=== PATIENT | female | born 1960 | race African-American/Black ===

== ENCOUNTER 2019-02-12 13:18 | Inpatient (IN) | payer OTHER ==
[~2019-02-12] VITALS: Ht 167.6 cm; Wt 53.8 kg
--- NOTE | ~2019-02-12 | H ---
[facility] [place] [address] [place] [address] HISTORY AND PHYSICAL Name: CASEY BLAND Julia Room #: 202-P ADM IN M.R.#: [id number] Admission: 02/12/19 Attend Phys: Scottie Larkin MD Discharge: Date of : 56 Report #: [id number] THIS REPORT FOR: //name// CC: Rae Larkin DATE OF SERVICE: 02/15/2019 CONSULTING PHYSICIAN: Dr. Hartmann. REASON FOR CONSULTATION: Primary hyperparathyroidism. RECOMMENDATIONS: 1. Thank you for the consultation. I will follow along. 2. I will follow up on ultrasound report. 3. She may need further imaging depending on what the ultrasound shows. 4. Given her constellation of symptoms and laboratory findings and underlying comorbidities, the patient would likely benefit from a parathyroidectomy. Extensive parathyroidectomy depends on imaging. 5. No surgical intervention during this hospitalization. The patient can follow up with me in 1-2 weeks following discharge. HISTORY OF PRESENT ILLNESS: The patient is a pleasant 58-year-old female with 2 month history of nausea, vomiting and abdominal pain. These became too extreme for her, so she presented to the ER. The patient does have somewhat of an underlying cognitive dysfunction. Therefore, medical history is obtained from her, her niece, and the referring physicians and her medical record. At the time of my visit, the patient was status post heart catheterization, but she was alert and answering questions. She was not in any extreme pain. She was not nauseated at that time. The patient denies fevers, chills, night sweats, chest pain or shortness of air. She denies melena, hematochezia, hematemesis. PAST MEDICAL HISTORY: 1. Hypertension. 2. Diabetes mellitus. 3. Hyperlipidemia. 4. Endometriosis. 5. Microadenoma tumors. PAST SURGICAL HISTORY: 1. Heart catheterization. 2. The patient denies any neck procedures. [facility] [address] [place] [address] HISTORY AND PHYSICAL Name: CASEY BLAND Room #: 202-P [facility] IN [facility].#: [id number] Admission: 02/12/19 Attend Phys: Scottie Larkin MD Discharge: Date of : 56 Report #: [id number] SOCIAL HISTORY: Denies use of alcohol, tobacco or recreational drugs. FAMILY HISTORY: Denies coagulopathy. Denies malignancies. REVIEW OF SYSTEMS: CONSTITUTIONAL: No fever. No chills. HEENT: Denies blurring of vision, double vision, headaches, hearing loss, sinus drainage or sore throat. Denies blurring of vision, double vision, headaches, hearing loss, sinus drainage or sore throat. CARDIOVASCULAR: See above and below. RESPIRATORY: Denies cough, wheezing, hemoptysis, or shortness of air. GASTROINTESTINAL: See above and below. GENITOURINARY: Denies dysuria or hematuria or kidney stones. No urinary frequency, urgency or incontinence. Denies dysuria or hematuria or kidney stones. No urinary frequency, urgency or incontinence. MUSCULOSKELETAL: No joint pain. No muscle pain. NEUROLOGICAL: Denies tremor, stroke or seizure. Denies tremor, stroke or seizure. HEMATOLOGIC / LYMPHATICS: Denies easy bruising, easy bleeding or enlarged lymph nodes. SKIN: No rash or ulceration. ENDOCRINE: No heat or cold intolerance PSYCHIATRIC: Denies depression, anxiety, or schizophrenia. PHYSICAL EXAMINATION: VITAL SIGNS: Temperature is 37, respiratory rate 18 on nasal cannula, heart rate is 88 at time of my H and P. Blood pressure is stable. GENERAL: No apparent distress, alert and oriented x3. HEENT: PERRLA, EOMI, MMM, NCAT NECK: Supple. No LAD CARDIOVASCULAR: Regular rhythm and rate. Hemodynamically stable. Normal capillary refill. Regular rhythm and rate. Hemodynamically stable. Normal capillary refill. PULMONARY: Nonlabored. Clear to auscultation bilaterally ABDOMEN: Soft, nontender to palpation, no guarding, no rigidity, no rebound tenderness, no hernias. EXTREMITIES: Calves soft, nontender, no edema. SKIN: No rashes or bruises. No visible incisions. PSYCHIATRIC: Normal mood and affect Normal mood and affect NEUROLOGICAL: Grossly intact. CN II-XII grossly intact. MUSCULOSKELETAL: 5/5 strength in upper extremities and lower extremities [address] [address] HISTORY AND PHYSICAL Name: CASEY BLAND Room #: 202-P ADM IN M.R.#: [id number] Admission: 02/12/19 Attend Phys: Scotite Larkin MD Discharge: Date of : 56 Report #: [id number] bilaterally. Right heart cath site clean, dry, no edema, no palpable hematoma. LYMPHATICS: No cervical, inguinal, or supraclavicular lymphadenopathy. By: 1241 1844 Cortez Hartmann MD /nt
--- NOTE | ~2019-02-12 | HC ---
[facility] [place] [place] [address] CONSULTATION Name: MARTINYanetCASEY R Room #: 202-P ADM IN M.R.#: [id number] Admission: 02/12/19 Attend Phys: Scottie Larkin MD Discharge: Date of : 56 Report #: [id number] THIS REPORT FOR: //name// CC: Rae Larkin DATE OF SERVICE: 02/12/2019 HISTORY OF PRESENT ILLNESS: The patient is a 58-year-old -[place] female. She came in with some progressive 2 weeks of nausea, vomiting and history of colitis. She had been scheduled as an outpatient for colonoscopy with Dr. Huang, but that did not occur. Subsequently, she developed some intermittent chest pressure with a troponin of 0.13 and 0.15 with T-wave abnormalities anterolaterally. So, this may be due to potassium. She was also found to be hypokalemic. Her medications have been lisinopril, indapamide, atorvastatin, Xopenex, losartan 50, cabergoline, had been taking Valium. Not clear if these EKG changes or troponin are significant, but concerning. PAST MEDICAL HISTORY: Positive for hypertension, diabetes, hypercholesterolemia and this recurrent colitis, endometriosis. ALLERGIES: PENICILLIN. SOCIAL HISTORY: She is accompanied by a brother. She is not . She has no children. No alcohol or tobacco. FAMILY HISTORY: There is a brother who had stents. LABORATORY DATA: Potassium 3.2, creatinine 1.4. Troponin is 0.15. SGPT 21. H and H are 12 and 37, white count 7.0. UA looks unremarkable. CAT scan shows stool throughout the colon, nothing for bowel obstruction, no evidence of appendicitis. PHYSICAL EXAMINATION: GENERAL: She is quiet, but in no distress. VITAL SIGNS: Blood pressure 136/80, pulse 60. HEENT: Eyes reveal xanthelasmas. Pharynx is clear. NECK: Shows preserved upstrokes without JVD or bruits. LUNGS: Clear. CARDIOVASCULAR: Regular rate and rhythm, S1, S2, without significant murmur or gallop. ABDOMEN: Slightly distended. No rebound or bowel sounds noted. Diffusely tender. EXTREMITIES: Reveal trace nonpitting edema. NEUROLOGIC: Nonfocal. [facility] [address] [place] [address] CONSULTATION Name: CASEY BLAND Room #: 202-P [facility] IN M.R.#: [id number] Admission: 02/12/19 Attend Phys: Scottie Larkin MD Discharge: Date of : 56 Report #: [id number] SKIN: Warm and dry without xanthoma or ulcer. MUSCULOSKELETAL: No gross joint deformity. ASSESSMENT: 1. Equivocal troponin elevation with abnormal EKG, rule out significant underlying coronary ischemia. 2. Colitis. 3. Hypertension. 4. Hypercholesterolemia. 5. Diabetes. RECOMMENDATIONS AND PLAN: We will repeat a troponin, EKG and echo in the morning. Replace potassium for the hypokalemia. CT scan is unremarkable. I would consider abdominal ultrasound in a.m. and possibly gallbladder. We will discuss with hospitalist and GI was supposed to evaluate. I will defer to them on GI consult. EKG changes could be due to hypokalemia but T-wave inversions are concerning, so we will either need nuclear stress testing or possible catheterization, although she is voicing no current complaints of chest pain. We will continue to follow with you. Thank you for asking me to assist in the care of this patient. By: [id number] /nt
[~2019-02-12 13:18] MED LIST: BACTRIM DS TAB1 EACH PO; CABERGOLINE 0.0.5 M1 PO; FLEXERIL PO; IBUPROFEN 800800 MG PO; TIGAN300 MG PO; VALIUM5 MG PO; ZESTRIL40 MG PO
[2019-02-12 13:28] VITALS: BP 149/96
[2019-02-12 13:54] LABS: ABSOLUTE NEUTROPHILS 3.8 thou/uL (1.4-8.2); EOSINOPHILS 0.1 % (0.0-3.0); HEMATOCRIT 37.4 % (37.0-47.0); HEMOGLOBIN 12.6 gm/dL (12.0-15.0); LYMPHOCYTES 37.7 % (24.0-44.0); MCHC 33.7 g/dL (28.0-37.0); MONOCYTES 7.5 % (1.0-8.0); PLATELET COUNT 182 thou/uL (150-400); POLYS 53.7 % (36.0-66.0); RBC 3.94 mil/uL (4.20-5.00); RDW 13.6 % (10.5-14.5)
[2019-02-12 14:00] LABS: CALCIUM 10.9 mg/dL (8.5-10.1); CREATININE 1.4 mg/dL (0.6-1.0); POTASSIUM 3.2 mmol/L (3.5-5.1)
[2019-02-12 14:03] LABS: URINE BILIRUBIN NEGATIVE (Negative); URINE BLOOD TRACE (Negative); URINE CLARITY CLEAR; URINE COLOR YELLOW; URINE GLUCOSE-RANDOM* NEGATIVE (Negative); URINE KETONES NEGATIVE (Negative); URINE NITRITE-REFLEX NEGATIVE (Negative); URINE PROTEIN (DIPSTICK) NEGATIVE (Negative); URINE SPECIFIC GRAVITY 1.015 (1.005-1.035); URINE UROBILINOGEN 0.2 E.U./dl (0.2-1.0)
[2019-02-12 14:04] LABS: URINE LEUKOCYTES-REFLEX 1+ (Negative)
[2019-02-12 14:07] LABS: ALBUMIN 4.4 g/dL (3.4-5.0); TOTAL BILIRUBIN 1.1 mg/dL (<0.1-1.0); TOTAL PROTEIN 7.8 g/dL (6.4-8.2); TROPONIN-I 0.13 ng/mL (<0.06)
[2019-02-12 14:12] LABS: SQUAMOUS 0-3 Few /LPF (0-3)
[2019-02-12 14:13] LABS: BACTERIA-REFLEX 1-9 Few /HPF (None Seen); CASTS None Seen /LPF (None Seen); CRYSTALS None Seen /LPF (None Seen); URINE RBC None Seen /HPF (0-2); URINE WBC-REFLEX 6-15 Few /HPF (0-5)
--- NOTE | 2019-02-12 15:50 | EKG ---
[facility] [place] [address] ELECTROCARDIOGRAM REPORT Name: MARTINYanetCASEY Room #: [facility]#: [id number] Admission: 02/12/19 Attend Phys: Discharge: Date of : 56 Report #: [id number] THIS REPORT FOR: //name// [facility] ED Test Date: 2019-02-12 Test Time: 13:59:52 Pat Name: CASEY BLAND Department: Room: Gender: F Meatman: JARROD : 1960 Requested By: Rachid Hamilton Order Number: [id number] MD: Forest Aragon Measurements Intervals [place] Rate: 76 P: 18 WV: 160 QRS: -18 QRSD: 112 T: 103 QT: 454 QTc: 511 Interpretive Statements Sinus rhythm RSR' in V1 or V2, right VCD LVH with secondary repolarization abnormality No previous ECG available for comparison Electronically Signed On 02-12-2019 15:49:54 GENERAL EXPEDITOR by Forest Aragon [email or web address] <ELECTRONICALLY SIGNED> By: Forest Aragon MD, [facility] 02/12/19 1549 [id number] [id number] Forest Aragon MD, FACC /EPI
[2019-02-12 17:33] VITALS: BP 166/87
[2019-02-12 18:08] VITALS: BP 160/88
[2019-02-12 19:06] VITALS: BP 137/87
[2019-02-12] MEDS ORDERED: LIPITOR40 MG PO (19:40)
[2019-02-12] MEDS ORDERED: INDAPAMIDE2.5 MG PO (19:42)
[2019-02-12] MEDS ORDERED: ASA81BEC PO (19:42)
[2019-02-12] MEDS ORDERED: COZAAR 25 MG TA25 M2 PO (19:43)
[2019-02-12] MEDS ORDERED: CABERGOLINE 0.0.5 M1 PO (19:44)
[2019-02-12] MEDS ORDERED: JANUVIA100 MG PO (19:44)
[2019-02-13] VITALS: BP 94/62
[2019-02-13 03:12] VITALS: BP 108/73
[2019-02-13 07:30] VITALS: BP 139/78
[2019-02-13 09:51] LABS: CREATININE 1.4 mg/dL (0.6-1.0); POTASSIUM 3.8 mmol/L (3.5-5.1)
[2019-02-13 09:57] LABS: CHOLESTEROL 184 mg/dL (<200); HDL CHOLESTEROL 68 mg/dL (>40); LDL CHOLESTEROL 109 mg/dL (<100); TC:HDL 2.7 Ratio (Not establshd); TRIGLYCERIDE 37 mg/dL (<150); VLDL 7 mg/dL (<40)
[2019-02-13 11:25] VITALS: BP 109/62
[2019-02-13 12:55] LABS: CALCIUM 9.8 mg/dL (8.5-10.1); CREATININE 1.3 mg/dL (0.6-1.0); PHOSPHORUS 2.5 mg/dL (2.5-4.9)
[2019-02-13 15:15] VITALS: BP 120/75
[2019-02-13 19:44] VITALS: BP 132/60
[2019-02-13 21:05] LABS: LUTEINIZING HORMONE (LH) 36.7 mIU/mL (()); PROLACTIN 0.4 ng/mL (4.8-23.3)
[2019-02-14 00:55] VITALS: BP 104/56
[2019-02-14 04:40] VITALS: BP 129/68
[2019-02-14 07:45] VITALS: BP 148/94
--- NOTE | 2019-02-14 08:40 | 2DMMODE ---
[address] [employer] [place] [address] 2 D/M-MODE ECHOCARDIOGRAM Name: CASEY BLAND Room #: 202-P ADM IN M.R.#: [id number] Admission: 02/12/19 Attend Phys: Scottie Larkin MD Discharge: Date of : 56 Report #: [id number] THIS REPORT FOR: //name// APPROVED REPORT Study performed: 02/13/2019 12:12:48 EXAM: Comprehensive 2D, Doppler, and color-flow Echocardiogram Patient Location: Bedside Room #: 202 Status: on-call BSA: 1.60 HR: 62 bpm BP: 108/73 mmHg Rhythm: NSR Other Information Study Quality: Adequate Risk Factors: Cardiac Risk Factors: HTN, Hyperlipidemia, DM Indications Elevated Troponin Chest Pain Hypertension/HDD 2D Dimensions IVSd: 21.16 (7-11mm) LVOT Diam: 20.00 (18-24mm) LVDd: 30.24 mm PWd: 18.43 (7-11mm) Ascending Ao: 31.19 (22-36mm) LVDs: 16.99 (25-40mm) Aortic Root: 29.52 mm LV Single Plane 4CH: 61.57 % LV Single Plane 2CH: 73.49 % Biplane EF: 68.7 % Volumes Left Atrial Volume (Systole) Single Plane 4CH: 54.43 mL Single Plane 2CH: 63.56 mL LA ESV Index: 43.00 mL/m2 Aortic Valve AoV Peak Raj.: 1.82 m/s AO Peak Gr.: 13.26 mmHg [facility] [address] [address] 2 D/M-MODE ECHOCARDIOGRAM Name: CASEY BLAND Room #: 202-P [facility] IN [facility]#: [id number] Admission: 02/12/19 Attend Phys: Scottie Larkin MD Discharge: Date of : 56 Report #: [id number] Mitral Valve E/A Ratio: 0.7 MV Decel. Time: 370.84 ms MV E Max Raj.: 0.64 m/s MV A Raj.: 0.89 m/s MV PHT: 107.54 ms IVRT: 79.58 ms TDI E/Lateral E': 12.80 E/Medial E': 21.33 Medial E' Raj.: 0.03 m/s Lateral E' Raj.: 0.05 m/s Pulmonary Vein P Vein S: 0.59 m/s P Vein A: 0.22 m/s P Vein D: 0.30 m/s P Vein A Dur.: 121.1 msec P Vein S/D Ratio: 1.97 Left Ventricle The left ventricle is normal size. There is normal LV segmental wall motion. Severe concentric left ventricular hypertrophy. Mid-left ventricular gradient measures 21 mmHg. The left ventricular systolic function is normal. The left ventricular ejection fraction is within the normal range. LVEF is 65-70%. Mild diastolic dysfunction is present (impaired relaxation pattern). Right Ventricle The right ventricle is normal size. The right ventricular systolic function is normal. Atria Left atrium is moderately dilated. Right atrium is borderline dilated. Aortic Valve The aortic valve is normal in structure. No aortic regurgitation is present. There is no aortic valvular stenosis. Mitral Valve The mitral valve is normal in structure. Mild mitral regurgitation. No evidence of mitral valve stenosis. Tricuspid Valve The tricuspid valve is normal in structure. There is no tricuspid valve regurgitation noted. [facility] [address] [place] [address] 2 D/M-MODE ECHOCARDIOGRAM Name: CASEY BLAND Room #: 202-P ADM IN .R.#: [id number] Admission: 02/12/19 Attend Phys: Scottie Larkin MD Discharge: Date of : 56 Report #: [id number] Pulmonic Valve The pulmonary valve is normal in structure. Trace pulmonic regurgitation. Great Vessels The aortic root is normal in size. The ascending aorta is normal in size. IVC is not well visualized. Pericardium There is no pericardial effusion. <Conclusion> The left ventricle is normal size. Severe concentric left ventricular hypertrophy. Mid-left ventricular gradient measures 21 mmHg. LVEF is 65-70%. Mild diastolic dysfunction is present (impaired relaxation pattern). The right ventricle is normal size. Left atrium is moderately dilated. Right atrium is borderline dilated. The aortic valve is normal in structure. Mild mitral regurgitation. There is no tricuspid valve regurgitation noted. The aortic root is normal in size. There is no pericardial effusion. <ELECTRONICALLY SIGNED> By: Benny Frank MD, FACC 02/14/19839 9 9 Benny Frank MD, FACC /INF
[2019-02-14 10:06] LABS: ABSOLUTE NEUTROPHILS 2.8 thou/uL (1.4-8.2); BASOPHILS 0.7 % (0.0-2.0); EOSINOPHILS 0.4 % (0.0-3.0); LYMPHOCYTES 28.4 % (24.0-44.0); MCH 32.8 pg (26.0-34.0); MCHC 33.8 g/dL (28.0-37.0); MONOCYTES 7.2 % (1.0-8.0); PLATELET COUNT 137 thou/uL (150-400); POLYS 63.3 % (36.0-66.0); RBC 3.09 mil/uL (4.20-5.00); WBC 4.4 thou/uL (4.0-11.0)
[2019-02-14 10:12] LABS: HEMOGLOBIN 10.1 gm/dL (12.0-15.0)
[2019-02-14 10:20] LABS: INR 1.1; PROTIME 11.3 Seconds (9.3-11.4)
--- NOTE | 2019-02-14 10:43 | HC ---
[facility] [place] [address] [place] [address] CONSULTATION Name: MARTINYanetCASEY Room #: 202-P ADM IN M.R.#: [id number] Admission: 02/12/19 Attend Phys: Scottie Larkin MD Discharge: Date of : 56 Report #: [id number] THIS REPORT FOR: //name// CC: Rae Larkin MD DATE OF SERVICE: 02/13/2019 HISTORY OF PRESENT ILLNESS: The patient is a 58-year-old female who was admitted through the Emergency Room yesterday for persistent nausea and vomiting. This has been ongoing for several months reportedly on a daily basis. The patient denies any fevers or chills, at one point was stating some chest discomfort, also some left-sided upper abdominal pain. She does have a history of diabetes. No one else is ill at home. She denies any fevers or chills. Unclear if she has had any new medications recently. There might have been medication changes for her diabetes recently. She does report mild heartburn at times, took Tums on a p.r.n. basis in the past. Denies any dysphagia, no previous history of upper endoscopy. The patient underwent a CT scan of the abdomen and pelvis on admission, which shows moderate to greater amount of stool throughout the colon. No discrete findings for colitis; however, they bring up a mild edema tracking along the descending colon. This appears to be more related to previous inflammatory process than a current process. This could reflect a resolving colitis or gastroenteritis. Small lesion in the liver likely hemangioma was noted. The patient's white count is normal. She is afebrile at this time. She has been started on antibiotics in case of colitis. She denies any diarrhea. She denies any blood in her stools including bright red blood or melanotic stools. She believes her last colonoscopy was approximately 8 years ago and was negative. She was actually scheduled for a colonoscopy in the near future by a different physician. She does have a family history of colon cancer in her mother. At home, she was taking MiraLax almost on a daily basis, also was using magnesium citrate and stool softeners at times with mixed results. She states her last bowel movement was Friday. Since being in the hospital, receiving IV fluids and antiemetics. She denies any further nausea or vomiting. In fact, she had lunch today and ate half of her meal. She was noted to have a mildly elevated troponin. Dr. Frank has evaluated the patient, they discussed options regarding invasive versus noninvasive testing and per Dr. Ambriz's note considering possibly proceeding with mesenteric angiography as well as a heart catheterization on Friday. PAST MEDICAL HISTORY: Diabetes, hypertension, hyperlipidemia, previous history of endometriosis. [address] [address] CONSULTATION Name: CASEY BLAND Julia Room #: 202-P ADM IN M.R.#: [id number] Admission: 02/12/19 Attend Phys: Scottie Larkin MD Discharge: Date of : 56 Report #: [id number] MEDICATIONS AT HOME: Ibuprofen p.r.n., Zestril, cabergoline, Valium p.r.n., Tigan p.r.n. ALLERGIES: PENICILLIN. REVIEW OF SYSTEMS: As per HPI. SOCIAL HISTORY: She denies any tobacco or alcohol use. FAMILY HISTORY: Positive for colon cancer in her mother diagnosed in her 60s. PHYSICAL EXAMINATION: VITAL SIGNS: Temperature is 98.1, pulse 70, blood pressure 109/62, respiratory rate is 18. GENERAL: She is alert and oriented x 3, in no acute distress. HEENT: Sclerae nonicteric. Oropharynx clear. NECK: Supple, without lymphadenopathy. CARDIOVASCULAR: Regular rate and rhythm. CHEST: Clear to auscultation bilaterally. ABDOMEN: Soft, nontender, nondistended, normoactive bowel sounds. EXTREMITIES: No cyanosis, clubbing or edema. LABORATORY DATA: Sodium 139, potassium 3.8, chloride 104, bicarb 30, BUN 13, creatinine 1.3, glucose 143, AST 19, lipase 201, total bilirubin 1.1, calcium 9.8, phosphorus 2.5, magnesium 1.9, alkaline phosphatase 59, ALT 21, total protein 7.8, albumin 4.4. Troponin 0.08, most recent 0.13 on admission. Cholesterol 184, triglycerides 37, HDL 68, LDL 109. T4 is 1.0. WBC 7.0, hemoglobin 12.6, platelet count is 182. TSH 0.911. UA with trace blood, 1 leukocyte, wbc's 6-15, bacteria 1-9. The patient underwent an ultrasound of the abdomen today, which was essentially unremarkable. Chest x-ray negative. On labs, blood culture was just reported as positive this morning for gram-positive cocci. ASSESSMENT AND PLAN: 1. Persistent nausea and vomiting, etiology is unclear. Doubt gastroenteritis as the patient has had this reportedly for several weeks or even months. She does have a history of diabetes, suggesting the possibility of gastroparesis as of right now with IV fluids and Zofran. She is having no further nausea and vomiting. We will continue this current regimen and observing. I would recommend proceeding with an upper endoscopy in the near future when she is stable from a cardiac standpoint. 2. CT showing edema in the descending colon bringing up the possibility of colitis. The patient denies any diarrhea or blood in her stools. Agree with antibiotics at this time, especially with her urinary tract infection, could consider performing EGD and colonoscopy at the same time in the near future. [facility] [address] [place] [address] CONSULTATION Name: CASEY BLAND Room #: 202-P ADM IN .R.#: [id number] Admission: 02/12/19 Attend Phys: Scottie Larkin MD Discharge: Date of : 56 Report #: [id number] Obviously, she would need to prep and with her recent nausea and vomiting, this may be difficult; however, she has improved. She does complain of constipation. Last bowel movement was on Friday. We will start daily MiraLax at this time and monitoring. I explained to the patient we will likely proceed with further GI workup once Cardiology has finished further testing, it appears she may be undergoing a catheterization on Friday. We will continue to follow the patient closely. Thank you for allowing me to participate in her care. <ELECTRONICALLY SIGNED> By: Zach Pate MD 02/14/19 1043 1339 55 Zach Pate MD /nt
[2019-02-14 11:55] VITALS: BP 148/87
--- NOTE | 2019-02-14 12:31 | HC ---
[facility] [place] [address] [place] [address] CONSULTATION Name: BALDOCASEY Julia Room #: 202-P ADM IN M.R.#: [id number] Admission: 02/12/19 Attend Phys: Scottie Larkin MD Discharge: Date of : 56 Report #: [id number] THIS REPORT FOR: //name// CC: Rae Larkin DATE OF SERVICE: 02/13/2019 CONSULTING PHYSICIAN: Dr. Scottie Larkin. REASON FOR CONSULTATION: Type 2 diabetes mellitus. HISTORY OF PRESENT ILLNESS: This is a 58-year-old female patient whose medical background is significant for multiple medical issues including type 2 diabetes mellitus, hypertension, hyperlipidemia, hyperprolactinemia. The patient was admitted here due to intractable nausea, vomiting and gagging. While she presented yesterday, the patient notes that these issues have been mounting up over a period of 2 months and she describes specific coughing up of phlegm that turns into bouts of vomiting, but not of food contents. When questioned, specifically about her type 2 diabetes mellitus, the patient noted that she has had it since the mid and that she was on insulin therapy for great deal of time until her managing Director Heart, Dr. Juárez had advised her to stop it, based on concerns of hypoglycemia. The patient indicated that she would have bouts of severe hypoglycemia, some leading to medical emergencies without having any symptoms. Subsequently, she was tried on Janumet, but she could not tolerate metformin component due to severe GI intolerance and she was moved over to Januvia 100 mg one a day. She notes that her blood glucose values at home, typically ranged from 90-200 mg/dL for the most part, but are mostly below 160 mg/dL. She has not experienced severe hypoglycemia on Januvia monotherapy. The patient is not aware of eye disease pertaining to diabetes, but then acknowledges that she does not follow with eye doctors. She is not aware of issues pertaining to diabetic nephropathy or neuropathy and she is not aware of heart disease history. Having reviewed the patient's chart, I had the indication that she also is diagnosed with pituitary microadenoma and is maintained on cabergoline therapy, but she had not elaborated much of this history. Also, the patient had been recently told that her calcium is elevated, but does not know more details; however, she denies having to experience kidney stones, fractures or active major issues with constipation, nausea. REVIEW OF SYSTEMS: CONSTITUTIONAL: Fatigue, tiredness, weight loss, poor appetite. No fever or [address] [address] CONSULTATION Name: CASEY BLAND Room #: 202-P [facility] IN M.R.#: [id number] Admission: 02/12/19 Attend Phys: Scottie Larkin MD Discharge: Date of : 56 Report #: [id number] chills. HEENT: Sore throat, sinus pain, congestion, coughing up of phlegm. PULMONARY: Occasional of shortness of breath and cough. No hemoptysis. CARDIAC: Negative for chest pain, palpitations, syncope or presyncope. GASTROINTESTINAL: Noted for bouts of nausea, vomiting intractable, getting worse abdominal discomfort, alternating bowel movement changes. MUSCULOSKELETAL: Diffuse scattered sporadic nonspecific joint and muscle aches. NEUROLOGY: Negative for loss of consciousness, seizure activity, headaches. ENDOCRINE: Type 2 diabetes mellitus with a history of severe hypoglycemia as noted in HPI. SKIN: No rash, ulceration, or major other changes. PSYCHIATRIC: No hallucinations or delusions, but describes a considerable level of stress and depressed mood overall. Otherwise, her review of system is noncontributory. PAST MEDICAL HISTORY: 1. Type 2 diabetes mellitus. 2. Hypertension. 3. Hyperlipidemia. 4. Hyperprolactinemia. 5. Pituitary microadenoma. 6. Hypercalcemia. 7. Anxiety. 8. Depression. 9. Endometriosis. OUTPATIENT MEDICATIONS: Include atorvastatin 40 mg daily, indapamide 2.5 mg at bedtime, aspirin 81 mg daily, losartan 50 mg daily, sitagliptin 100 mg daily, cabergoline 0.5 mg b.i.d., lisinopril 40 mg b.i.d., diazepam 10 mg p.r.n. anxiety, Tigan 300 mg as needed for nausea. ALLERGIES: PENICILLIN, IN ADDITION TO A SEVERE INTOLERANCE TOWARDS METFORMIN. FAMILY HISTORY: Noncontributory. SOCIAL HISTORY: The patient currently lives with her mother. Not . She does not have children. She denies use of tobacco, alcohol or illicit drugs. PHYSICAL EXAMINATION: GENERAL: Pleasant -Gabonese female patient, who is not in apparent distress. VITAL SIGNS: Blood pressure is 139/78 mmHg, heart rate is 65 beats per minute, respiration 18 per minute, temperature 36.7 degrees. CONSTITUTIONAL: The patient is sitting up in her bed, seemingly comfortable, not in apparent distress. HEENT: Anicteric sclerae. Intact extraocular motions. [facility] [address] [place] [address] CONSULTATION Name: CASEY BLAND Room #: 202-P ADM IN M.Julia.#: [id number] Admission: 02/12/19 Attend Phys: Scottie Larkin MD Discharge: Date of : 56 Report #: [id number] NECK: Supple, without JVD, carotid bruits or lymphadenopathy. I do not appreciate thyromegaly. CHEST: Noted for moderate air entry bilaterally with scattered rales. HEART: Regular rate and rhythm without murmurs or gallops. ABDOMEN: Generalized discomfort on deep palpation without guarding, tenderness, or organomegaly. Active bowel sounds. EXTREMITIES: Lower extremity exam, trace ankle edema. Palpable pedal pulses. No skin breaks, ulcerations or other deformities. NEUROLOGIC: Awake, alert and oriented to time, place and person. The remainder of her examination is nonfocal. PSYCHOLOGICAL HISTORY: Pleasant, interactive. Normal mood and affect. LABORATORY DATA: Sodium 139, potassium 3.8, chloride 104, carbon dioxide 30, anion gap 5, BUN 13, creatinine 1.4, GFR 46, calcium 10, but was 10.9 mg/dL. Triglycerides 37, total cholesterol 184, LDL 109, HDL 68. TSH 0.911, free T4 of 1.0. Troponin 0.08. White blood count 7.0, hemoglobin 12.6, hematocrit 37.4, platelets 182. I have reviewed the patient's outpatient file in detail and I found the following data: On 12/14/2018, she had a hemoglobin A1c of 6.0, but with a high fructosamine of 314. ASSESSMENT AND PLAN: 1. Type 2 diabetes mellitus. As noted above, the patient has had a longstanding history of type 2 diabetes mellitus. It appears that she was managed for a long periods of time with insulin, but that she had a major issue with severe hypoglycemia and hypoglycemia unawareness that forced the stoppage of insulin therapy, which I would fully agree with. The patient had proved to be rather severely intolerant to metformin and had eventually been maintained on Januvia 100 mg daily, monotherapy. Having spoken to her and reviewed her recent outpatient laboratory data, it appears that her control is somewhat not ideal. Her hemoglobin A1c of 6.0 might be falsely lowered by the combination of moderate kidney disease and anemia, but her fructosamine suggests that she probably runs well over the measured value of 6.0%. Nonetheless, given the patient's issues with severe hypoglycemia and hypoglycemia unawareness, I would be extremely cautious in approaching her with hypoglycemic agents with her insulin or sulfonylurea. That said, I will await the hemoglobin A1c that was collected during the study. I will start Tradjenta therapy while she is here in order to cater for her therapeutic needs and replace Januvia while she is at the hospital. I talked to her extensively in the presence of her brother and they both agree with the concerns I have expressed over the potential for hypoglycemia and how this would occasionally accepts slightly higher than desired or guideline driven blood glucose targets. Blood glucose monitoring will commence a.c. and at bedtime and further changes will be made accordingly. 2. Hypercalcemia. The patient has evidence of hypercalcemia first on presentation here at 10.9 mg/dL, but also on recent labs within the past month [address] [address] CONSULTATION Name: CASEY BLAND Room #: 202-P [facility] IN M.R.#: [id number] Admission: 02/12/19 Attend Phys: Scottie Larkin MD Discharge: Date of : 56 Report #: [id number] in the outpatient setting at 11 mg/dL. I will investigate this further with ionized calcium and vitamin D, and PTH levels. 3. Hyperprolactinemia. The patient has longstanding issues of hyperprolactinemia in the setting of a pituitary microadenoma and is controlled on cabergoline therapy at 0.25 mg twice a week. Her latest measured prolactin level was 0.6 in the outpatient setting. She is to continue with the same. 4. Hyperlipidemia. The patient has hyperlipidemia and in view of her diabetic background this could certainly stand to benefit from added control. I will have her continue with atorvastatin 40 mg daily. 5. Hypertension. The patient is maintained on metoprolol and Norvasc therapy, she is to continue the same for the time being to maintain adequate blood pressure control. I have reviewed the patient's clinical care notes, laboratory results, from both her inpatient stay as well as her outpatient electronic file. My review lasted well over 35 minutes. I appreciate this consultation by Dr. Larkin. <ELECTRONICALLY SIGNED> By: Rae Rios MD 02/14/19 1231 1047 1649 Rae Rios MD /nt
[2019-02-14 16:30] VITALS: BP 104/64
[2019-02-14 19:56] VITALS: BP 117/68
[2019-02-15] VITALS (14 sets, daily range): BP systolic 92–167; BP diastolic 61–88
[2019-02-15 04:58] LABS: ABSOLUTE NEUTROPHILS 1.8 thou/uL (1.4-8.2); BASOPHILS 0.6 % (0.0-2.0); EOSINOPHILS 0.8 % (0.0-3.0); HEMATOCRIT 26.6 % (37.0-47.0); HEMOGLOBIN 8.9 gm/dL (12.0-15.0); LYMPHOCYTES 40.4 % (24.0-44.0); MCH 32.5 pg (26.0-34.0); MCHC 33.4 g/dL (28.0-37.0); MCV 97.3 fL (80.0-100.0); MONOCYTES 9.2 % (1.0-8.0); PLATELET COUNT 114 thou/uL (150-400); RBC 2.74 mil/uL (4.20-5.00); RDW 14.5 % (10.5-14.5); WBC 3.7 thou/uL (4.0-11.0)
[2019-02-15 05:20] LABS: ALBUMIN 2.8 g/dL (3.4-5.0); CALCIUM 8.9 mg/dL (8.5-10.1); CREATININE 1.2 mg/dL (0.6-1.0); MAGNESIUM 1.6 mg/dL (1.8-2.4); PHOSPHORUS 2.8 mg/dL (2.5-4.9); POTASSIUM 4.2 mmol/L (3.5-5.1); TOTAL BILIRUBIN 0.3 mg/dL (<0.1-1.0); TOTAL PROTEIN 5.3 g/dL (6.4-8.2)
--- NOTE | 2019-02-15 07:36 | EKG ---
[place] [address] [facility] [place] [address] ELECTROCARDIOGRAM REPORT Name: MARTINYanetCASEY Room #: 202-P ADM IN M.R.#: [id number] Admission: 02/12/19 Attend Phys: Scottie Larkin MD Discharge: Date of : 56 Report #: [id number] THIS REPORT FOR: //name// [facility] ED Test Date: 2019-02-12 Test Time: 16:59:34 Pat Name: CASEY BLAND Department: Room: [facility] Gender: F Regulatory Compliance Engineer: MOE : 1960 Requested By: Rachid Hamilton Order Number: [id number] MD: Forest Aragon Measurements Intervals [place] Rate: 63 P: 69 MT: 181 QRS: 22 QRSD: 106 T: 196 QT: 447 QTc: 458 Interpretive Statements Sinus rhythm RSR' in V1 or V2, right VCD Abnormal T, consider ischemia, diffuse leads Baseline wander in lead(s) V6 Compared to ECG 02/12/2019 13:59:52 T-wave abnormality now present Electronically Signed On 02-15-2019 7:36:40 PRISONER CLASSIFICATION INTERVIEWER by Forest Aragon [email or web address] <ELECTRONICALLY SIGNED> By: Forest Aragon MD, FAC 02/15/19 0736 1659 1659 Forest Aragon MD, [facility] /EPI
--- NOTE | 2019-02-15 07:49 | EKG ---
[address] [address] ELECTROCARDIOGRAM REPORT Name: BALDOCASEY Room #: 202-P ADM IN M.R.#: [id number] Admission: 02/12/19 Attend Phys: Scottie Larkin MD Discharge: Date of : 56 Report #: [id number] THIS REPORT FOR: //name// [facility] Test Date: 2019-02-13 Test Time: 08:33:26 Pat Name: CASEY BLAND Department: Room: 202 P Gender: F Physical Instructor: CARLY : 1960 Requested By: Roselia Schaeffer Order Number: [id number] MD: Forest Aragon Measurements Intervals [place] Rate: 61 P: 64 VA: 142 QRS: 0 QRSD: 114 T: 136 QT: 413 QTc: 416 Interpretive Statements Sinus rhythm RSR' in V1 or V2, right VCD Abnormal T, consider ischemia, lateral leads Compared to ECG 02/12/2019 13:59:52 no significant change was found Electronically Signed On 02-15-2019 7:49:05 BELLMAN by Forest Aragon [email or web address] <ELECTRONICALLY SIGNED> By: Forest Aragon MD, [facility] 02/15/19 0749 0833 Forest Aragon MD, [facility] /EPI
[2019-02-15 15:08] LABS: CALCIUM IONIZED* 5.8 mg/dL (4.5-5.6)
--- NOTE | 2019-02-15 18:15 | CATHLAB ---
[facility] [address] [place] [address] INVASIVE PROCEDURE REPORT Name: CASEY BLAND Julia Room #: 202-P ADM IN M.R.#: [id number] Admission: 02/12/19 Attend Phys: Scottie Larkin MD Discharge: Date of : 56 Report #: [id number] THIS REPORT FOR: //name// APPROVED REPORT Study performed: 02/15/2019 08:55:06 Patient Details Patient Status: In-Patient Room #: 202 Event Personnel Benny Frank MD; Arsenio Duron RN; Jessi Vergara RN; DARREL Leyva, SCIENCE FACULTY MEMBER, Monitor; DARREL Da Silva, Scrub Procedures Performed Left Heart Catheterization, [facility], [id number]; Hemostasis with Mynx Indication Chest pain Procedure Narrative A 6F [place] Sheath sheath was inserted into the RFA. Coronary angiography was performed using coronary diagnostic catheters. The right coronary system was accessed and visualized with a JR4 catheter. The left coronary system was accessed and visualized with a JL4 catheter. The left ventricle was accessed and visualized with a pigtail catheter. Left ventriculogram was performed in 30 degree projection. Closure device was deployed with a 6 Fr MynxGrip. The patient tolerated the procedure well and there were no complications associated with the procedure. There was no hematoma. Intraoperative Conscious Sedation Sedation start time: 08:27 Case end Time: 09:20 Fentanyl 50.0 mcg Versed 1.0 mg Conscious sedation is a combined total for the left heart cath and mesenteric angiogram procedures. Fluoro time and dose are a combined total for the left heart cath and mesenteric angiogram procedures. Contrast type and amount are a combined total for the left heart cath and mesenteric angiogram procedures. Fluoro Time: 4.52 minutes Dose: DAP 14,223.89 cGycm2 894.5 mGy [facility] [place] [address] INVASIVE PROCEDURE REPORT Name: CASEY BLAND Room #: 202-P [facility] IN .R.#: [id number] Admission: 02/12/19 Attend Phys: Scottie Larkin MD Discharge: Date of : 56 Report #: [id number] Contrast Type and Amount: Visipaque-146ml Hemodynamics The aortic pressure is 150/74 mmHg with a mean of 107 mmHg. The left ventricular pressure is 142 mmHg with a mean of mmHg. The left ventricular end diastolic pressure is 22 mmHg. Conclusion #1 normal left ventricular size and hyperdynamic LV function cavity obliteration EF 65-70% #2 left main large free of disease giving rise to LAD and circumflex #3 LAD is minimal irregularities extends around the apex no occlusive disease #4 circumflex OM is moderate in size and distribution there is no occlusive disease widely patent #5 dominant right coronary artery moderate size and distribution no occlusive disease Recommendations and plan: Continue aggressive risk factor modification no indication for coronary intervention. Significant LVH is noted both echo and LV gram. Blood pressure control strongly indicated <ELECTRONICALLY SIGNED> By: Benny Frank MD, FACC 02/15/191813 13 13 Benny Frank MD, FACC /INF
[2019-02-16 04:17] LABS: CALCIUM 9.5 mg/dL (8.5-10.1); POTASSIUM 3.4 mmol/L (3.5-5.1)
[2019-02-16 05:05] LABS: ABSOLUTE NEUTROPHILS 3.4 thou/uL (1.4-8.2); BASOPHILS 0.3 % (0.0-2.0); EOSINOPHILS 0.4 % (0.0-3.0); HEMATOCRIT 29.1 % (37.0-47.0); HEMOGLOBIN 9.9 gm/dL (12.0-15.0); LYMPHOCYTES 25.6 % (24.0-44.0); MCH 32.9 pg (26.0-34.0); MCHC 34.1 g/dL (28.0-37.0); MCV 96.4 fL (80.0-100.0); MONOCYTES 8.8 % (1.0-8.0); PLATELET COUNT 139 thou/uL (150-400); POLYS 64.9 % (36.0-66.0); RBC 3.02 mil/uL (4.20-5.00); RDW 14.6 % (10.5-14.5); WBC 5.3 thou/uL (4.0-11.0)
[2019-02-16 05:45] VITALS: BP 125/68
[2019-02-16 07:19] VITALS: BP 122/70
[2019-02-16] MEDS ORDERED: AMLODIPINE BESY10 MG PO (12:54)
[2019-02-16] MEDS ORDERED: METOPROLOL SUCC25 M1 PO (12:54)
[2019-02-16 13:11] VITALS: BP 144/76
[2019-02-16] MEDS ORDERED: PEPCID40 MG PO (13:19)
[2019-02-16 14:42] VITALS: BP 144/76
[2019-02-17 09:07] LABS: 25-HYDROXY TOTAL 8.9 ng/mL (30.0-100.0)
--- NOTE | 2019-02-19 18:06 | PATH ---
[facility] [place] [place] [address] PATHOLOGY RPT PROCEDURE Name: EVA COHEN Julia Room #: 202-P [facility] IN M.R.#: [id number] Admission: 02/12/19 Date of : 56 Discharge: 02/16/19 Report #: [id number] Path Case #: [id number] [facility] Accession Number: [id number] . 01 Material submitted: . PART A: duodenum - BX OF DUODENUM PART B: stomach - BX OF ANTRUM PART C: splenic flexure - POLYP AT SPLENIC FLEXURE X2 PART D: sigmoid colon - POLYP AT SIGMOID . 01 Clinical history: . N/V Gastritis, hiatal hernia, duodenitis A. For celiac B. For H. pylori . 02 Diagnosis: A. Small bowel mucosa, duodenum, endoscopic biopsy: - No diagnostic abnormalities. - Negative for villous blunting or increase in intraepithelial lymphocytes. . B. Gastric mucosa, antrum, endoscopic biopsy: - Helicobacter pylori induced moderate active gastritis. - Negative for intestinal metaplasia or atrophy. - Moderate number of Helicobacter pylori present on a properly controlled immunohistochemical stain. . C. Polyp x 2, splenic flexure, endoscopic biopsy: - Tubular adenoma present in all fragments sampled. - Negative for high grade dysplasia. . D. Polyp, at sigmoid, endoscopic biopsy: - Tubulovillous adenoma. - Negative for high grade dysplasia. (IUV/db; 02/19/2019) LBQ 02/19/2019 1259 Local . 02 Electronically signed: . Pretty Booker MD, Pathologist NPI- [id number] . 01 Gross description: . A. The specimen is received in formalin, labeled "Eva Cohen BX of duodenum" and consists of 3 fragments of avila tissue measuring between 0.2 x 0.2 cm and 0.3 x 0.2 cm which are entirely submitted [place] [address] PATHOLOGY RPT PROCEDURE Name: EVA COHEN Room #: 202-P DIS IN M.R.#: [id number] Admission: 02/12/19 Date of : 56 Discharge: 02/16/19 Report #: [id number] Path Case #: [id number] B. The specimen is received in formalin, labeled "Eva Cohen BX of antrum" and consists of 2 fragments of pink-avila tissue measuring between 0.4 x 0.2 cm and 0.5 x 0.2 cm which are entirely submitted in B1. . C. The specimen is received in formalin, labeled "[place], Eva, polyp at splenic flexure x2" and consists of multiple fragments of avila tissue measuring between 0.2 cm and 1.0 cm. The 4 largest are inked, sectioned, and entirely submitted in C1-C2. The rest of the specimen is submitted as an aggregate in C3. . D. The specimen is received in formalin, labeled "[place], Eva, polyp at sigmoid" and consists of a polypoid segment of brown tissue measuring 1.1 x 1.0 x 0.8 cm. The margin is inked black. It is serially sectioned and entirely submitted in D1. (SDY; 02/17/2019) /SYU 02/17/2019 1704 Local . 02 Pathologist provided ICD-10: K29.60, D12.3, D12.5, B96.81 . 02 CPT . 390837, 864660, 182030, 306801, Q09913 Specimen Comment: A courtesy copy of this report has been sent to [phone], [phone] Specimen Comment: [phone] Specimen Comment: Report sent to / DR VIDAL Performed at: [address], [place], [place] [id number] MD Flaco Duque MD Phone: [phone] Performed at: [address] [id number] MD Pretty Booker MD Phone: [phone]
== END 2019-02-16 17:15 | disposition home or self-care (01) | DRG 280 ==
LOC: ER 13:18 → EROBS 15:58 → 2N 15:58 → ENTRNSPT 02-16 16:58 → 2N 02-16 17:15
PROVIDERS: Internal Medicine; Nurse Practitioner Adult Health; Physician Assistant; ADMIT Internal Medicine
PROC: B211YZZ Fluoroscopy of Multiple Coronary Arteries using Other Contrast (ICD-10-PCS; principal; 2019-02-15)
PROC: 4A023N7 Measurement of Cardiac Sampling and Pressure, Left Heart, Percutaneous Approach (ICD-10-PCS; principal; 2019-02-15)
PROC: B215YZZ Fluoroscopy of Left Heart using Other Contrast (ICD-10-PCS; principal; 2019-02-15)
PROC: B41F1ZZ Fluoroscopy of Right Lower Extremity Arteries using Low Osmolar Contrast (ICD-10-PCS; 2019-02-15)
PROC: B4141ZZ Fluoroscopy of Superior Mesenteric Artery using Low Osmolar Contrast (ICD-10-PCS; 2019-02-15)
PROC: B41G1ZZ Fluoroscopy of Left Lower Extremity Arteries using Low Osmolar Contrast (ICD-10-PCS; 2019-02-15)
PROC: B4181ZZ Fluoroscopy of Bilateral Renal Arteries using Low Osmolar Contrast (ICD-10-PCS; 2019-02-15)
PROC: B4101ZZ Fluoroscopy of Abdominal Aorta using Low Osmolar Contrast (ICD-10-PCS; 2019-02-15)
PROC: 0DB98ZX Excision of Duodenum, Via Natural or Artificial Opening Endoscopic, Diagnostic (ICD-10-PCS; 2019-02-16)
PROC: 0DBE8ZZ Excision of Large Intestine, Via Natural or Artificial Opening Endoscopic (ICD-10-PCS; 2019-02-16)
PROC: 0DB68ZX Excision of Stomach, Via Natural or Artificial Opening Endoscopic, Diagnostic (ICD-10-PCS; 2019-02-16)
DX: I21.4 Non-ST elevation (NSTEMI) myocardial infarction (principal); E43 Unspecified severe protein-calorie malnutrition; K55.9 Vascular disorder of intestine, unspecified; N17.9 Acute kidney failure, unspecified; E22.1 Hyperprolactinemia; D58.9 Hereditary hemolytic anemia, unspecified; Z68.1 Body mass index [BMI] 19.9 or less, adult; E78.5 Hyperlipidemia, unspecified; E87.6 Hypokalemia; E78.00 Pure hypercholesterolemia, unspecified; F32.9 Major depressive disorder, single episode, unspecified; F41.9 Anxiety disorder, unspecified; E83.52 Hypercalcemia; E11.22 Type 2 diabetes mellitus with diabetic chronic kidney disease; I12.9 Hypertensive chronic kidney disease with stage 1 through stage 4 chronic kidney disease, or unspecified chronic kidney disease; N18.3 Chronic kidney disease, stage 3 (moderate); D49.7 Neoplasm of unspecified behavior of endocrine glands and other parts of nervous system; D69.6 Thrombocytopenia, unspecified; D50.9 Iron deficiency anemia, unspecified; K44.9 Diaphragmatic hernia without obstruction or gangrene; K29.70 Gastritis, unspecified, without bleeding; K29.80 Duodenitis without bleeding; K63.5 Polyp of colon; K64.8 Other hemorrhoids; D69.59 Other secondary thrombocytopenia; T45.515A Adverse effect of anticoagulants, initial encounter; Z88.0 Allergy status to penicillin; Z95.5 Presence of coronary angioplasty implant and graft; Z80.0 Family history of malignant neoplasm of digestive organs; Z82.49 Family history of ischemic heart disease and other diseases of the circulatory system; Z79.82 Long term (current) use of aspirin; Z79.899 Other long term (current) drug therapy; Y92.89 Other specified places as the place of occurrence of the external cause
CPT/HCPCS: 10081; 62110; 62900; 70005

== ENCOUNTER 2019-02-21 11:29 | Emergency (ER) | payer OTHER ==
[~2019-02-21] VITALS: Ht 167.6 cm; Wt 60.3 kg
[~2019-02-21 11:29] MED LIST changes: +AMLODIPINE BESY10 MG PO; +ASA81BEC PO; +COZAAR 25 MG TA25 M2 PO; +INDAPAMIDE2.5 MG PO; +JANUVIA100 MG PO; +LIPITOR40 MG PO; +METOPROLOL SUCC25 M1 PO; +PEPCID40 MG PO
[2019-02-21 16:43] VITALS: BP 130/71
--- NOTE | 2019-02-22 08:12 | EKG ---
[facility] [place] [place] [address] ELECTROCARDIOGRAM REPORT Name: CASEY BLAND Room #: [facility]#: [id number] Admission: 02/21/19 Attend Phys: Discharge: 02/21/19 Date of : 56 Report #: [id number] THIS REPORT FOR: //name// [facility] ED Test Date: 2019-02-21 Test Time: 11:34:26 Pat Name: CASEY BLAND Department: Room: Gender: F Loom Operator Apprentice[facility] 1960 Requested By: Clayton Fuller Order Number: [id number] MD: Mark Onofre Measurements Intervals [place] Rate: 68 P: 80 SD: 159 QRS: 35 QRSD: 97 T: 131 QT: 397 QTc: 423 Interpretive Statements Sinus rhythm Atrial premature complex JORGE L, consider biatrial enlargement RSR' in V1 or V2, right VCD or RVH Abnormal T, consider ischemia, lateral leads Baseline wander in lead(s) I,aVR,V6 Compared to ECG 02/13/2019 08:33:26 Atrial premature complex(es) now present Right ventricular hypertrophy now present T-wave abnormality still present Possible ischemia still present Electronically Signed On 02-22-2019 8:12:17 BRASS SORTER by Mark Onofre [email or web address] <ELECTRONICALLY SIGNED> By: Mark Onofre MD 02/22/1912 33 113 Mark Onofre MD /EPI
== END 2019-02-21 16:44 | disposition home or self-care (01) ==
LOC: ER 11:29
DX: R41.0 Disorientation, unspecified (principal); T46.1X5A Adverse effect of calcium-channel blockers, initial encounter; T44.7X5A Adverse effect of beta-adrenoreceptor antagonists, initial encounter; I10 Essential (primary) hypertension; E11.9 Type 2 diabetes mellitus without complications; E78.5 Hyperlipidemia, unspecified; Z88.0 Allergy status to penicillin; Z79.82 Long term (current) use of aspirin; Z79.899 Other long term (current) drug therapy; Y92.89 Other specified places as the place of occurrence of the external cause

== ENCOUNTER → 2019-03-30 | Outpatient (CLI) | payer OTHER | LOC: SJCVC 13:00 | DX: R94.31 Abnormal electrocardiogram [ECG] [EKG] (principal); I10 Essential (primary) hypertension; E11.9 Type 2 diabetes mellitus without complications; E78.00 Pure hypercholesterolemia, unspecified; J45.909 Unspecified asthma, uncomplicated; Z79.4 Long term (current) use of insulin; Z79.82 Long term (current) use of aspirin; Z79.899 Other long term (current) drug therapy ==

== ENCOUNTER → 2020-05-29 | Outpatient (CLI) | payer OTHER | LOC: RAD 14:59 | PROVIDERS: ATTEND Family Medicine | DX: M25.511 Pain in right shoulder (principal); M25.512 Pain in left shoulder; G89.29 Other chronic pain ==